=== PATIENT | female | born 1970 | race Caucasian/White ===

== ENCOUNTER 2023-07-19 13:36 | Emergency (ER) | payer OTHER ==
[~2023-07-19] VITALS: Ht 157.5 cm; Wt 49.9 kg
[2023-07-19 13:48] VITALS: BP 135/79; TEMP 98; O2SAT 98
== END 2023-07-19 15:43 | disposition home or self-care (01) ==
LOC: ER 13:40
DX: Z04.1 Encounter for examination and observation following transport accident (principal); Z53.21 Procedure and treatment not carried out due to patient leaving prior to being seen by health care provider; V89.2XXA Person injured in unspecified motor-vehicle accident, traffic, initial encounter; Y93.89 Activity, other specified; Y92.411 Interstate highway as the place of occurrence of the external cause; Y99.8 Other external cause status